=== PATIENT | female | born 2000 | race Caucasian/White ===

== ENCOUNTER 2022-05-04 12:31 | Outpatient (CLI) | payer OTHER, SELFPAY ==
[2022-05-04 14:35] LABS: Cholesterol* 172 mg/dL (90-199); HDL Cholesterol* 62 mg/dL (>=50); LDL Cholesterol Calculated 95 mg/dL (<100); Triglycerides* 77 mg/dL (40-149)
[2022-05-04 17:19] LABS: Chlamydia DNA Amplified* NOT DETECTED (No Detected); GC DNA Amplified* NOT DETECTED (No Detected)
== END 2022-05-04 12:32 | disposition home or self-care (01) ==
PROVIDERS: PCP Family Medicine; Visit Provider Registered Nurse
DX: Z01.419 Encounter for gynecological examination (general) (routine) without abnormal findings (principal); Z11.3 Encounter for screening for infections with a predominantly sexual mode of transmission; Z13.6 Encounter for screening for cardiovascular disorders
CPT/HCPCS: 80061; 87491; 87591

== ENCOUNTER 2025-03-07 15:30 | Outpatient (CLI) | payer BC, SELFPAY ==
--- NOTE | 2025-03-07 15:45 | CRLHL7_ITS ---
For Patients: As a result of the Century Cures Act, medical imaging exams and procedure reports are released immediately into your electronic medical record. You may view this report before your referring provider. If you have questions, please contact your health care provider. INDICATION: Enlargement of right thyroid lobe COMPARISON: none TECHNIQUE: Aiken scale and color Doppler images were acquired of the thyroid gland. FINDINGS: Solid and cystic nodule right thyroid lobe measures 3.7 x 2.7 x 3.2 cm, TR 3. Isthmus measures 3.2 millimeters. The right lobe measures 6.3 x 3.5 x 4.7 cm and the left lobe measures 5.0 x 1.3 x 1.0 cm in size. The color Doppler images demonstrate normal vascularity. There is no evidence of cervical lymphadenopathy or parathyroid mass. IMPRESSION: 3.7 cm TR 3 nodule right thyroid lobe. FNA should be considered. Dictated by Tereso Courtney MD @ 03/07/2025 4:43:56 PM (Electronically Signed)
== END 2025-03-07 15:31 | disposition home or self-care (01) ==
LOC: US 15:32
PROVIDERS: PCP Family Medicine; Visit Provider Internal Medicine
DX: E04.1 Nontoxic single thyroid nodule (principal)
CPT/HCPCS: 76536; 84443